=== PATIENT | female | born 1990 | race Caucasian/White ===

== ENCOUNTER 2023-09-18 10:11 | Emergency (ER) | payer BC, OTHER ==
[2023-09-18 10:31] VITALS: BP 120/69; PULSE 64; RESP 18; TEMP 98.1; BMI 24.3
== END 2023-09-18 11:03 | disposition home or self-care (01) ==
LOC: FER 10:11
DX: M54.50 Low back pain, unspecified (principal); V49.40XA Driver injured in collision with unspecified motor vehicles in traffic accident, initial encounter; Y92.410 Unspecified street and highway as the place of occurrence of the external cause
CPT/HCPCS: 99282-25

== ENCOUNTER 2023-11-10 04:56 | Emergency (ER) | payer OTHER, BC ==
[2023-11-10 05:03] VITALS: BP 128/85; PULSE 52; RESP 17; TEMP 98.5; BMI 24.2
== END 2023-11-10 05:47 | disposition home or self-care (01) ==
LOC: FER 04:56
DX: S63.501A Unspecified sprain of right wrist, initial encounter (principal); X58.XXXA Exposure to other specified factors, initial encounter
CPT/HCPCS: 99282-25

== ENCOUNTER 2023-12-02 03:05 | Emergency (ER) | payer OTHER, BC ==
[2023-12-02 03:26] VITALS: BP 130/75; PULSE 80; RESP 16; TEMP 98.4; BMI 24.2
== END 2023-12-02 03:53 | disposition home or self-care (01) ==
LOC: FER 03:05
DX: S43.401A Unspecified sprain of right shoulder joint, initial encounter (principal); S80.211A Abrasion, right knee, initial encounter; S80.212A Abrasion, left knee, initial encounter; Y35.811A Legal intervention involving manhandling, law enforcement official injured, initial encounter
CPT/HCPCS: 99283-25

== ENCOUNTER 2024-01-01 21:14 | Emergency (ER) | payer BC, OTHER ==
[2024-01-01 21:23] VITALS: BP 118/77; PULSE 67; RESP 16; TEMP 97.5; BMI 24.9
== END 2024-01-01 22:40 | disposition home or self-care (01) ==
LOC: FER 21:14
DX: S66.911A Strain of unspecified muscle, fascia and tendon at wrist and hand level, right hand, initial encounter (principal); X50.1XXA Overexertion from prolonged static or awkward postures, initial encounter
CPT/HCPCS: 73110-TC-RT-FY; 99283-25

== ENCOUNTER 2024-02-02 00:24 | Emergency (ER) | payer OTHER, BC ==
[2024-02-02 00:37] VITALS: BP 134/84; PULSE 62; RESP 18; TEMP 98.6; BMI 25.0
== END 2024-02-02 01:07 | disposition home or self-care (01) ==
LOC: FER 00:24
DX: S80.212A Abrasion, left knee, initial encounter (principal); M25.511 Pain in right shoulder; Z77.21 Contact with and (suspected) exposure to potentially hazardous body fluids; W01.0XXA Fall on same level from slipping, tripping and stumbling without subsequent striking against object, initial encounter; Y93.02 Activity, running
CPT/HCPCS: 99283-25

== ENCOUNTER 2024-12-13 03:52 | Emergency (ER) | payer OTHER ==
[2024-12-13 04:11] VITALS: BP 133/79; PULSE 52; RESP 18; TEMP 98.2; BMI 23.3
== END 2024-12-13 05:54 | disposition home or self-care (01) ==
LOC: JER 03:52
DX: S69.91XA Unspecified injury of right wrist, hand and finger(s), initial encounter (principal); Y35.891A Legal intervention involving other specified means, law enforcement official injured, initial encounter; Y92.410 Unspecified street and highway as the place of occurrence of the external cause
CPT/HCPCS: 73110-TC-RT-FY; 73130-TC-RT-FY; 99283-25